=== PATIENT | female | born 1975 | race Caucasian/White ===

== ENCOUNTER 2020-04-11 20:23 | Emergency (ER) | payer SELFPAY ==
[2020-04-11] MEDS ORDERED: Amoxicillin/Potassium Clav 875 MG TAB ONE (20:41)
[2020-04-11] MEDS ORDERED: Boostrix 0.5 ML VIAL ONE (20:42)
[2020-04-11] MEDS ORDERED: Ibuprofen 800 MG TAB ONE (20:42)
[2020-04-11] MEDS ORDERED: Bacitracin 1 PK ONE (20:58)
--- NOTE | 2020-04-11 21:26 | RAD ---
LEFT FOREARM TWO VIEWS: 04/11/20 Soft tissue air is seen in the mid lateral forearm region. No underlying fracture or opaque foreign b lula was apparent. IMPRESSION: Soft tissue injury. POS: HOME
== END 2020-04-11 21:10 | disposition home or self-care (01) ==
LOC: BURERS 20:23
DX: S51.852A Open bite of left forearm, initial encounter (principal); S51.832A Puncture wound without foreign body of left forearm, initial encounter; F17.210 Nicotine dependence, cigarettes, uncomplicated; Z23 Encounter for immunization; W54.0XXA Bitten by dog, initial encounter
CPT/HCPCS: 90471; 90715